=== PATIENT | male | born 1985 | race Caucasian/White ===

== ENCOUNTER 2019-07-11 15:15 | Emergency (ER) | payer MEDICAID, OTHER ==
[~2019-07-11] VITALS: Ht 188 cm; Wt 77.3 kg
[2019-07-11] MEDS ORDERED: BREX0.25 PO (16:15)
[2019-07-11 17:11] VITALS: BP 139/85
== END 2019-07-11 17:19 | disposition home or self-care (01) ==
LOC: EMS 15:16
DX: R76.11 Nonspecific reaction to tuberculin skin test without active tuberculosis (principal); F32.9 Major depressive disorder, single episode, unspecified; F17.210 Nicotine dependence, cigarettes, uncomplicated; F11.90 Opioid use, unspecified, uncomplicated; F15.90 Other stimulant use, unspecified, uncomplicated; Z79.899 Other long term (current) drug therapy
CPT/HCPCS: 99406